=== PATIENT | female | born 1965 | race Asian ===

== ENCOUNTER 2016-07-22 09:50 | Day surgery (SDC) | payer OTHER ==
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
[2016-07-22] MEDS ORDERED: CEFAZOLIN SODIUM 2 GRAM PREMIX 100 ML IV PRN (10:30)
[2016-07-22] MEDS ORDERED: IV START KIT ONE (10:31)
[2016-07-22] MEDS ORDERED: LACTATED RINGERS 1,000 ML ONE (10:31)
[2016-07-22] MEDS ORDERED: CEFAZOLIN SODIUM 2 GRAM PREMIX 100 ML IV ONE (10:36)
[2016-07-22] MEDS ORDERED: PROPOFOL 20 ML IV ONE (12:26)
[2016-07-22] MEDS ORDERED: LIDOCAINE 2% (PRES FREE) 5 ML VIAL ONE (12:26)
[2016-07-22] MEDS ORDERED: MIDAZOLAM HCL 1 MG/ML 2ML VIAL ONE (12:49)
[2016-07-22] MEDS ORDERED: FENTANYL 100 MCG/2 ML VIAL ONE ×2 (12:49→13:41)
[2016-07-22] MEDS ORDERED: BUPIVACAINE 0.5% (PRES FREE) 30 ML VIAL ONE (13:08)
[2016-07-22] MEDS ORDERED: ONDANSETRON 4 MG/2ML 2 ML VIAL IV PRN ×2 (13:42→14:57)
[2016-07-22] MEDS ORDERED: PROMETHAZINE HCL 25 MG/ML VIAL IM PRN (13:42)
[2016-07-22] MEDS ORDERED: HYDROMORPHONE HCL 1 MG/ML SYRINGE IV PRN ×2 (13:42→14:57)
[2016-07-22] MEDS ORDERED: FENTANYL 100 MCG/2 ML VIAL IV PRN (13:42)
[2016-07-22] MEDS ORDERED: HYDRALAZINE HCL 20 MG/1 ML VIAL IV PRN (13:42)
[2016-07-22] MEDS ORDERED: ATROPINE SULFATE 0.4 MG/1 ML VIAL IV PRN (13:42)
[2016-07-22] MEDS ORDERED: NALOXONE HCL 0.4 MG/ML VIAL IV PRN (13:42)
[2016-07-22] MEDS ORDERED: MEPERIDINE 25 MG/ML SYRINGE IV PRN (13:42)
[2016-07-22] MEDS ORDERED: LABETALOL HCL 5 MG/ML 20ML VIAL IV PRN (13:42)
[2016-07-22] MEDS ORDERED: LACTATED RINGERS 1,000 ML IV SCH ×2 (13:45→14:57)
--- NOTE | 2016-07-22 14:27 | PCMBPN ---
Brief Post Op Note: Date of Procedure: 07/22/16 Start Time: 1345 Preoperative Diagnosis: 1. Right Knee Pain, Arthritis, Possible meniscus tear Postoperative Diagnosis: 1. Right Knee Arthritis, Medial and Lateral Meniscus tears Procedure: Right Knee Arthroscopy with PMM/PLM, debridement, Lateral Tibial Plateau Shaving Chondroplasty Surgeon: Rodney Silva MD Assist:Vipin Veliz PA-C Anesthesia: Kenan Montes CRNA Findings: See above Condition: Stable Complications: None IV Fluids: 1200 mLs of LR Urine Output: 0 mLs Estimated Blood Loss: 5 mLs Tourniquet Time: 15 min at 250mmHg Specimens: N/A Implants: None Drains: [N/A]
[2016-07-22] MEDS ORDERED: DIPHENHYDRAMINE HCL 50 MG/1 ML VIAL IV PRN (14:57)
[2016-07-22] MEDS ORDERED: OXYCODONE/ACETAMINOPHEN 5/325 MG TABLET PO PRN (14:57)
[2016-07-22] MEDS ORDERED: KETOROLAC TROMETHAMINE 30 MG/ML 1 ML VIAL IV PRN (14:57)
[2016-07-22] MEDS ORDERED: HYDROMORPHONE HCL 0.5 MG/0.5 ML SYRINGE ONE (15:43)
[2016-07-22] MEDS ORDERED: OXYCODONE/ACETAMINOPHEN 5/325 MG TABLET ONE (15:44)
--- NOTE | 2016-07-23 14:14 | OP ---
Lisa SELLERS : 1965 [id number] DATE OF PROCEDURE: July 22, 2016 PREOPERATIVE DIAGNOSES: Right knee osteoarthritis and possible medial meniscus tear. POSTOPERATIVE DIAGNOSES: Right knee osteoarthritis with medial and lateral meniscus tears. PROCEDURE PERFORMED: RIGHT KNEE ARTHROSCOPY WITH PARTIAL MEDIAL AND LATERAL MENISCECTOMIES AND A SHAVING CHONDROPLASTY OF THE LATERAL TIBIAL PLATEAU. SURGEON: Rodney Silva M.D. SUPERVISOR LATHING: Vipin Veliz P.A.-C. ANESTHESIA: Catrachito Montes C.R.N.A. SPECIMENS: No material was sent to the laboratory. ESTIMATED BLOOD LOSS: 5 mL FLUIDS REPLACED: 1200 mL of crystalloid. TOURNIQUET TIME: 15 minutes at 250 mmHg. URINE OUTPUT: None. IMPLANTS: None. DRAINS: No drains. INDICATIONS: This is a 51-year-old female who complains of pain and mechanical symptoms in the right knee that have been increasing over time and have not responded to a course of nonoperative measures. Patient has an exam and imaging studies which are consistent with the above. Given failure to improve with nonoperative measures patient was consented for right knee arthroscopy with partial medial and lateral meniscectomies and a shaving chondroplasty of the lateral tibial plateau. The risks, benefits and alternatives were discussed at length with that patient and they elected to proceed with surgery. Informed consent was obtained and documented in the chart and the patient was placed on the schedule the first available convenience. DESCRIPTION OF PROCEDURE: The patient was identified in the preoperative holding area where they were marked with an indelible marker by the operating surgeon. Patient was taken to the operating room where they were placed in the supine position the operating room table. A general anesthesia was induced, perioperative antibiotics were administered and a well padded pre-calibrated nonsterile tourniquet was placed on the right upper thigh. Patient was prepped and draped in the usual sterile fashion for surgery. An operative time out was performed and confirmed by all members of the operative team confirming the patient identity, procedure to be performed and the laterally for that procedure. All necessary personnel, equipment and implants were in place and there were no safety concerns. The leg was elevated and exsanguinated using the Esmarch bandage and the tourniquet was inflated to 250 mmHg. A standard lateral portal was created and the 30 degree viewing arthroscope was inserted into the knee. Optics were directed anteromedially and a medial portal was localized and created in a standard fashion. A probe was inserted through this medial portal and used in completion of the diagnostic arthroscopy with the following findings: The patient had extensive chondral changes in her medial compartment consistent with grade 3 and 4 loss of cartilage. She had a complex tear of the medial meniscus that was displacing into the joint. She had several loose bodies that likely came from these missing areas of cartilage. Her ACL and PCL were intact. Her lateral compartment showed similar grade 3 and 4 changes diffusely throughout the area primarily on the tibial plateau more so than the femoral condyle. She had a complex tear of the lateral meniscus toward the junction of the posterior horn in the midbody. She had grade 2 and 3 changes with some small areas of loose flaps of cartilage in the patellofemoral joint. There were multiple loose bodies throughout the knee. There was hypertrophy of the anterior fat pad. There was no evidence of ligamentous injury. After completion of diagnostic arthroscopy the probe was exchanged for an arthroscopic biter and this was used to resect back the medial meniscus to a stable rim. This was then exchanged for arthroscopic resector shaver which was used to complete the partial medial meniscectomy. The hypertrophic anterior fat pad was debrided and then the lateral compartment was entered. A partial lateral meniscectomy was performed using arthroscopic biter's and then completed with an arthroscopic resector shaver. In addition a shaving chondroplasty was performed with significant areas of loose cartilage on the lateral tibial plateau. The knee was brought back out into extension and a chondroplasty of the patellofemoral joint was performed using the shaver to free up and remove any loose margins of cartilage leaving only stable cartilage behind. At this point we felt that we had addressed the patient's intra-articular pathology and so the camera and instruments were removed from the knee. The portal sites were closed with #4-0 Nylons; 20 mL of 0.5% Marcaine was injected into the knee for perioperative analgesia. A sterile dressing of Xeroform, fluffs, ABDs, web roll and then an VIRA bandage from ankle to the thigh was applied. The tourniquet was deflated, the drapes were removed. The patient was awakened from anesthesia and extubated in the operating room without difficulty. Patient was transferred to a stretcher and taken postoperatively to the post anesthesia care unit in stable condition. There were no observed intraoperative complications during this procedure. Job [id number] Cc: [facility]
== END 2016-07-22 17:14 | disposition home or self-care (01) ==
LOC: SDC 09:50
PROVIDERS: ATTEND Orthopaedic Surgery
PROC: 0SBD4ZZ Excision of Left Knee Joint, Percutaneous Endoscopic Approach (ICD-10-PCS; principal; 2016-07-22)
PROC: 0SBD4ZZ Excision of Left Knee Joint, Percutaneous Endoscopic Approach (ICD-10-PCS; 2016-07-22)
PROC: 0SBD4ZZ Excision of Left Knee Joint, Percutaneous Endoscopic Approach (ICD-10-PCS; 2016-07-22)
DX: M17.11 Unilateral primary osteoarthritis, right knee (principal); M23.252 Derangement of posterior horn of lateral meniscus due to old tear or injury, left knee; M23.222 Derangement of posterior horn of medial meniscus due to old tear or injury, left knee; V89.2XXS Person injured in unspecified motor-vehicle accident, traffic, sequela; I10 Essential (primary) hypertension
CPT/HCPCS: 29880; 29879; J3010 ×2; A9270; J2250; J7120; J1170; J0690